=== PATIENT | male | born 1985 | race Caucasian/White ===

== ENCOUNTER 2019-05-31 19:41 | Emergency (ER) | payer OTHER, SELFPAY ==
--- NOTE | ~2019-05-31 | XR_ITS ---
EXAMINATION: XR ankle LT min 3V DATE: 05/31/2019 20:02 INDICATION: Left ankle pain and swelling TECHNIQUE: Anteroposterior, lateral, mortise, and additional oblique view of the ankle were obtained. COMPARISON: 12/27/2018 FINDINGS: There is no fracture, dislocation, or subluxation. The bones and joint spaces are normal. T here is mild lateral ankle soft tissue swelling. IMPRESSION: 1. Lateral ankle soft tissue swelling without acute osseous findings. Reviewed, dictated and finalized at location A. [employer]
[2019-05-31 19:47] VITALS: BP 134/87; PULSE 117; RESP 18; TEMP 36.3; O2SAT 100
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
[2019-05-31 21:53] VITALS: BP 120/80; PULSE 80; RESP 20; TEMP 36.7; O2SAT 99
== END 2019-05-31 21:54 | disposition home or self-care (01) ==
PROVIDERS: Emergency Provider General Practice; PCP Family Medicine
DX: S93.402A Sprain of unspecified ligament of left ankle, initial encounter (principal); J45.909 Unspecified asthma, uncomplicated; I10 Essential (primary) hypertension; F17.210 Nicotine dependence, cigarettes, uncomplicated; W00.1XXA Fall from stairs and steps due to ice and snow, initial encounter
CPT/HCPCS: 73610; 99283; A9270

== ENCOUNTER 2019-07-31 17:45 | Outpatient (CLI) | payer OTHER, SELFPAY ==
--- NOTE | ~2019-07-31 | XR_ITS ---
EXAMINATION: XR lumbar spine min 4V EXAM DATE: 07/31/2019 18:15 INDICATION: Acute onset mid and low back pain. TECHNIQUE: Lumber spine frontal, lateral, bilateral oblique projections. Coned down frontal and lat eral L5-S1 lumbar projections for interpretation. There is no prior study for comparison. FINDINGS: There is no spondylolysis. Sacrum, sacroiliac joints, sacral arcuate lines are intact. The vertebral bodies are aligned in the AP dimension. Vertebral body and disc heights are well-maintained . Paraspinal soft tissue is unremarkable. There are no bony erosions identified. No appreciable facet arthropathy. IMPRESSION: Unremarkable XR lumbar spine min 4V exam. Reviewed, dictated and finalized at location A.
--- NOTE | ~2019-07-31 | XR_ITS ---
EXAMINATION: XR thoracic spine 3V EXAM DATE: 07/31/2019 18:15 INDICATION: Acute onset mid and low back pain. Radiating. Worse on right side. TECHNIQUE: Frontal and lateral projections of the thoracic spine as well as lateral swimmers projecti on of the upper thoracic spine for interpretation. There is no prior study for comparison. FINDINGS: There are no bony erosions identified. The vertebral bodies are aligned in the AP dimension . Vertebral body and disc heights are well-maintained. Paraspinal soft tissue is unremarkable. IMPRESSION: Unremarkable XR thoracic spine 3V exam. Reviewed, dictated and finalized at location A.
== END 2019-07-31 17:46 | disposition home or self-care (01) ==
LOC: ANHIMG 17:50
PROVIDERS: PCP Family Medicine; Visit Provider Family Medicine
DX: M54.6 Pain in thoracic spine (principal)
CPT/HCPCS: 72072; 72110

== ENCOUNTER 2019-10-08 08:45 | Outpatient (CLI) | payer OTHER, SELFPAY ==
--- NOTE | ~2019-10-08 | MR_ITS ---
EXAMINATION: MR thoracic spine wo/w con DATE: 10/08/2019 10:54 INDICATION: Chronic back pain TECHNIQUE: Magnetic resonance imaging (MRI) of the thoracic spine was performed without intravenous c ontrast. Sagittal localizer T1-weighted FSE of the cervicothoracic spine was obtained. Thoracic spine sequences included sagittal T2-weighted FSE, sagittal T1-weighted SE, Sagittal T2-weighted FS FSE, a nd axial T2-weighted FSE. COMPARISON: Thoracic spine radiographs dated 07/31/2019 and MRI dated 12/23/2017 FINDINGS: Alignment is normal.Vertebral body heights are normal. Normal marrow signal. Mild disc heights and si gnal. Small right subarticular zone disc protrusion at T9-T10 which mildly narrows the central canal. The remaining discs do not extend beyond the endplate margins. Multilevel minimal to mild thoracic f acet osteoarthritis. There is normal spinal cord signal. The conus terminates at L1. IMPRESSION: 1. Small right-sided radicular zone disc protrusion resulting in mild central canal stenosis at T9-T1 0. Reviewed, dictated and finalized at location A. IMPRESSION: 1. Small right-sided radicular zone disc protrusion resulting in mild central c anal stenosis at T9-T10.
--- NOTE | ~2019-10-08 | MR_ITS ---
EXAMINATION: MR lumbar spine wo/w con EXAM DATE: 10/08/2019 10:54 INDICATION: Low back pain, mid back numbness. TECHNIQUE: Multi-sequential, multiplanar MR images of the lumbar spine were obtained without contrast . Sagittal T1, T2, T2 fat saturation images. Axial T2 weighted images. Axial T1 weighted sequence. Patient was then injected with 15 mL Multihance intravenous contrast and reimaged. Postcontrast axi al and sagittal T1-weighted fat saturation sequences were obtained.. Comparison is made to prior exam ination from 12/23/2017. FINDINGS: The vertebral bodies are aligned in the AP dimension. Vertebral body and disc heights are w ell-maintained. There are no suspicious marrow signal abnormalities. The conus medullaris terminates at the T12-L1 level and has normal signal intensity and morphology. Paraspinal soft tissue is unremar kable. There are no areas of abnormal enhancement on the post contrast images. Level by level evaluation: T12-L1: Disc does not extend beyond the endplate margin. Facet arthropathy: None. Neural foraminal stenosis: No stenosis. Central canal stenosis: No stenosis. L1-L2: Disc does not extend beyond the endplate margin. Facet arthropathy: None. Neural foraminal stenosis: No stenosis. Central canal stenosis: No stenosis. L2-L3: Disc does not extend beyond the endplate margin. Facet arthropathy: None. Neural foraminal stenosis: No stenosis. Central canal stenosis: No stenosis. L3-L4: Disc does not extend beyond the endplate margin. Facet arthropathy: None. Neural foraminal stenosis: No stenosis. Central canal stenosis: No stenosis. L4-L5: There is a minimal diffuse disc bulge. Facet arthropathy: Mild. Neural foraminal stenosis: Mild bilateral. Central canal stenosis: No stenosis. L5-S1: There is a mild diffuse disc bulge. Facet arthropathy: Mild. Neural foraminal stenosis: Mild to moderate bilateral. Central canal stenosis: No stenosis. IMPRESSION: 1. Mild lower lumbar spondylosis. 2. No acute findings. Reviewed, dictated and finalized at location B.
[2019-10-08 09:28] LABS: Estimated Glomerular Filt Rate > 60
== END 2019-10-08 08:46 | disposition home or self-care (01) ==
PROVIDERS: PCP Family Medicine; Visit Provider Family Medicine
DX: M51.24 Other intervertebral disc displacement, thoracic region (principal); M47.816 Spondylosis without myelopathy or radiculopathy, lumbar region
CPT/HCPCS: 36415; 72157; 72158; A9577

== ENCOUNTER 2019-10-16 09:28 | Outpatient (CLI) | payer OTHER, SELFPAY ==
--- NOTE | 2019-10-16 11:00 | NEURO_ITS ---
Patient Number: [id number] Impression: # Complains of pain in hands. # Subtle evolving bilateral Carpal Tunnel Syndrome with sensory component more than motor. # Normal needle/EMG exam. Nerve Conduction Studies Anti Sensory Summary Table Stim Site NR Peak (ms) P-T Amp (?V) Site1 Site2 Delta-P (ms) Dist (cm) Desmond (m/s) Left Median Anti Sensory (2-3nd Digit) Wrist 3.8 38.2 Wrist 2-3nd Digit 3.8 14.0 37 Wrist 3.8 34.8 Wrist 2-3nd Digit 3.8 14.0 37 Right Median Anti Sensory (2-3nd Digit) Wrist 3.7 27.6 Wrist 2-3nd Digit 3.7 14.0 38 Wrist 4.3 19.1 Wrist 2-3nd Digit 3.7 14.0 38 Left Radial Anti Sensory (Base 1st Digit) Wrist 2.1 17.8 Wrist Base 1st Digit 2.1 0.0 Right Radial Anti Sensory (Base 1st Digit) Wrist 2.0 22.7 Wrist Base 1st Digit 2.0 0.0 Left Ulnar Anti Sensory (5th Digit) Wrist 2.7 35.6 Wrist 5th Digit 2.7 14.0 52 Right Ulnar Anti Sensory (5th Digit) Wrist 2.4 42.4 Wrist 5th Digit 2.4 14.0 58 Motor Summary Table Stim Site NR Onset (ms) O-P Amp (mV) Site1 Site2 Delta-0 (ms) Dist (cm) Desmond (m/s) Left Median Motor (Abd Poll Brev) Wrist 3.6 2.7 Elbow Wrist 5.1 29.0 57 Elbow 8.7 3.1 Right Median Motor (Abd Poll Brev) Wrist 3.3 3.1 Elbow Wrist 5.2 28.0 54 Elbow 8.5 2.9 Left Ulnar Motor (Abd Dig Minimi) Wrist 2.5 6.5 A Elbow Wrist 4.5 28.0 62 A Elbow 7.0 5.8 Right Ulnar Motor (Abd Dig Minimi) Wrist 2.4 4.6 A Elbow Wrist 4.9 30.0 61 A Elbow 7.3 4.2 F Wave Studies NR F-Lat (ms) L-R F-Lat (ms) Left Median (Mrkrs) (Abd Poll Brev) 29.57 1.21 Right Median (Mrkrs) (Abd Poll Brev) 28.36 1.21 Left Ulnar (Mrkrs) (Abd Dig Min) 27.21 0.16 Right Ulnar (Mrkrs) (Abd Dig Min) 27.05 0.16 EMG Side Muscle Nerve Root Ins Act Fibs Amp Dur Recrt Comment Right 1stDorInt Ulnar C8-T1 Nml Nml Nml Nml Nml Right Ext Indicis Radial (Post Int) C7-8 Nml Nml Nml Nml Nml Right Ext Digitorum Radial (Post Int) C7-8 Nml Nml Nml Nml Nml Right BrachioRad Radial C5-6 Nml Nml Nml Nml Nml Right PronatorTeres Median C6-7 Nml Nml Nml Nml Nml Right Abd Poll Brev Median C8-T1 Nml Nml Nml Nml Nml Left 1stDorInt Ulnar C8-T1 Nml Nml Nml Nml Nml Left Ext Indicis Radial (Post Int) C7-8 Nml Nml Nml Nml Nml Left Ext Digitorum Radial (Post Int) C7-8 Nml Nml Nml Nml Nml Left BrachioRad Radial C5-6 Nml Nml Nml Nml Nml Left PronatorTeres Median C6-7 Nml Nml Nml Nml Nml Left Abd Poll Brev Median C8-T1 Nml Nml Nml Nml Nml Right ABD Dig Min Ulnar C8-T1 Nml Nml Nml Nml Nml MTDD
== END 2019-10-16 09:29 | disposition home or self-care (01) ==
LOC: ANHNEURO 09:30
PROVIDERS: PCP Family Medicine; Visit Provider Family Medicine
DX: G56.03 Carpal tunnel syndrome, bilateral upper limbs (principal)
CPT/HCPCS: 95886; 95911

== ENCOUNTER 2019-12-18 20:48 | Emergency (ER) | payer OTHER, SELFPAY ==
[2019-12-18 21:22] VITALS: BP 117/69; PULSE 71; RESP 17; TEMP 36.8; O2SAT 100
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
[2019-12-18] MEDS: SODIUM CHLORIDE 0.9% IV 2,000 ML 999 ML IV CONT (22:15)
[2019-12-18 22:16] LABS: Basophils Percent Auto 0.2 % (0.2-1.2); Hematocrit 36.2 % (42.0-52.0); Hemoglobin 12.3 g/dL (14.0-18.0); Immature Granulocyte Absolute 0.14 K/mm3 (0.00-0.031); Immature Granulocyte Percent A 0.8 % (0-0.5); Lymphocytes Absolute Auto 1.62 K/mm3 (0.9-3.2); Lymphocytes Percent Auto 9.8 % (18.3-44.2); Mean Corpuscular Hemoglobin 27.8 pg (26-34); Mean Corpuscular Volume 81.7 fl (80-100); Mean Platelet Volume 11.6 fl (7.4-10.4); Monocytes Percent Auto 5.9 % (2.6-8.5); Neutrophils Absolute Auto 13.7 K/mm3 (1.3-6.7); Neutrophils Percent Auto 83.3 % (45.5-73.1); Platelet Count Result 308 k/mm3 (150-375); Red Blood Count 4.43 M/mm3 (4.6-6.20); Red Cell Distribution Width 12.9 % (11.5-14.5); White Blood Count 16.5 K/mm3 (4.5-10.0)
[2019-12-18 22:23] LABS: Add Urine Microscopic? YES; Appearance Urine Cloudy (Clear); Bilirubin Urine Negative (Negative); Blood Urine Negative (Negative); Color Urine Amber (Yellow); Glucose Urine UA Negative (Negative); Ketones Urine Negative (Negative); Leukocyte Esterase Ur Negative LEU/UL (Negative); Mucus Urine Rare /lpf; Nitrate Urine Negative (Negative); Protein Urine Negative (Negative); RBC Urine 0-2 /hpf (0-2); Squamous Epithelial Cell Urine Rare /hpf (Few); Urobilinogen Urine Negative mg/dL (<2.0); WBC Urine 0-3 /hpf
[2019-12-18 22:26] LABS: Specific Grav Ur 1.034 (1.001-1.035)
[2019-12-18 22:27] LABS: Anion Gap 10 mmol/L (8-16); Blood Urea Nitrogen 32 mg/dL (9-20); Calcium 9.3 mg/dL (8.4-10.2); Carbon Dioxide 28 mmol/L (22-30); Chloride 102 mmol/L (98-107); Estimated CRCL calculation 85 ml/min; Estimated Glomerular Filt Rate > 60; Glucose 149 mg/dL (75-110); Potassium 3.8 mmol/L (3.4-5.0); Sodium 140 mmol/L (137-145)
[2019-12-18 22:42] VITALS: BP 116/73; PULSE 63; RESP 19; O2SAT 98
[2019-12-18 23:20] VITALS: BP 127/66; PULSE 71; RESP 19; TEMP 36.3; O2SAT 98
[2019-12-19 18:55] LABS: Glucose Point of Care 187 (65-105)
== END 2019-12-18 23:22 | disposition home or self-care (01) ==
PROVIDERS: Emergency Provider Emergency Medicine; PCP Family Medicine
DX: E11.65 Type 2 diabetes mellitus with hyperglycemia (principal); J45.909 Unspecified asthma, uncomplicated; I10 Essential (primary) hypertension; F17.210 Nicotine dependence, cigarettes, uncomplicated
CPT/HCPCS: 36415; 80048; 81001; 82948; 85025; 96360; 99283; J7030

== ENCOUNTER 2019-12-31 12:44 | Emergency (ER) | payer OTHER, SELFPAY ==
[2019-12-31 12:49] VITALS: BP 113/67; PULSE 111; RESP 18; TEMP 36.2; O2SAT 99
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
[2019-12-31] MEDS: diazePAM 5 MG TABLET PO (14:15)
[2019-12-31] MEDS: KETOROLAC (*BKC) 60 MG/2 ML VIAL IM (14:16)
[2019-12-31 14:21] VITALS: BP 129/89; PULSE 92; RESP 20; TEMP 36.8; O2SAT 100
== END 2019-12-31 14:21 | disposition home or self-care (01) ==
PROVIDERS: Emergency Provider Emergency Medicine; PCP Family Medicine
DX: S39.012A Strain of muscle, fascia and tendon of lower back, initial encounter (principal); X50.0XXA Overexertion from strenuous movement or load, initial encounter; J45.909 Unspecified asthma, uncomplicated; I10 Essential (primary) hypertension
CPT/HCPCS: 96372; 99283; A9270; J1885

== ENCOUNTER 2022-09-13 17:03 | Emergency (ER) | payer OTHER, SELFPAY ==
[2022-09-13 17:07] VITALS: BP 140/95; PULSE 110; RESP 16; TEMP 36.4; O2SAT 100
[2022-09-13 18:41] LABS: Basophils Absolute Auto 0.1 K/mm3 (0.0-0.1); Basophils Percent Auto 0.5 % (0.2-1.2); Eosinophils Absolute Auto 0.1 K/mm3 (0-0.3); Eosinophils Percent Auto 0.7 % (0-4.4); Hematocrit 40.4 % (42.0-52.0); Hemoglobin 13.9 g/dL (14.0-18.0); Immature Granulocyte Absolute 0.02 K/mm3 (0.00-0.031); Immature Granulocyte Percent A 0.2 % (0-0.5); Mean Corpuscular HGB Conc 34.4 g/dl (32-36); Mean Corpuscular Hemoglobin 27.5 pg (26-34); Mean Platelet Volume 11.5 fl (7.4-10.4); Monocytes Absolute Auto 0.5 K/mm3 (0.1-0.6); Monocytes Percent Auto 5.5 % (2.6-8.5); Neutrophils Absolute Auto 6.4 K/mm3 (1.3-6.7); Neutrophils Percent Auto 67.1 % (45.5-73.1); Platelet Count Result 301 k/mm3 (150-375); Red Blood Count 5.05 M/mm3 (4.6-6.20); Red Cell Distribution Width 13.5 % (11.5-14.5); White Blood Count 9.6 K/mm3 (4.5-10.0)
[2022-09-13 18:47] LABS: Alanine Aminotransferase 38 U/L (6-50); Albumin Level 4.5 g/dL (3.5-5.1); Alkaline Phosphatase 44 U/L (38-126); Anion Gap 8 mmol/L (8-16); Aspartate Amino Transferase 33 U/L (17-59); Bilirubin,Total 1.2 mg/dL (0.2-1.3); Blood Urea Nitrogen 21 mg/dL (9-20); Calcium 9.3 mg/dL (8.4-10.2); Carbon Dioxide 28 mmol/L (22-30); Chloride 103 mmol/L (98-107); Estimated CRCL calculation 102 ml/min; Estimated Glomerular Filt Rate > 60; Glucose 110 mg/dL (65-110); Lipase 87 U/L (23-300); Potassium 3.2 mmol/L (3.4-5.0); Sodium 139 mmol/L (137-145)
[2022-09-13 18:48] LABS: Ethanol < 10 mg/dL (<10)
[2022-09-13 20:55] VITALS: BP 140/95; BP 146/101; BP 149/99; PULSE 118; PULSE 120; PULSE 122
[2022-09-13] MEDS: SODIUM CHLORIDE 0.9% IV 1,000 ML 999 ML IV CONT ×2 (21:02→22:09)
[2022-09-13] MEDS: ONDANSETRON INJ 4 MG/2 ML VIAL IV PUSH (21:02)
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
--- NOTE | 2022-09-13 22:12 | PC.NURSE ---
stood patient by the bed to help with urination. patient states he is unable to void. provider aware. new orders received
--- NOTE | 2022-09-13 23:07 | PC.NURSE ---
patient unable to urinate. ok per provider. PO challenge at this time
[2022-09-14 00:24] VITALS: BP 136/100; PULSE 95; RESP 18; O2SAT 99
[2022-09-14 00:31] VITALS: BP 147/98
== END 2022-09-14 01:47 | disposition home or self-care (01) ==
PROVIDERS: Emergency Medicine; Emergency Provider Emergency Medicine; PCP Family Medicine
DX: F11.23 Opioid dependence with withdrawal (principal); J45.909 Unspecified asthma, uncomplicated; I10 Essential (primary) hypertension; F17.210 Nicotine dependence, cigarettes, uncomplicated
CPT/HCPCS: 36415; 80053; 80307; 83690; 85025; 96361; 96374; 99284; J2405; J7030

== ENCOUNTER 2023-11-21 00:38 | Emergency (ER) | payer BC, SELFPAY ==
[2023-11-21 00:39] VITALS: BP 142/89; PULSE 100; RESP 18; TEMP 36.8; O2SAT 100
[2023-11-21] MEDS: GLUCAGON FOR INJ 1 MG VIAL IV PUSH (02:40)
[2023-11-21] MEDS: NITROGLYCERIN SL 0.4 MG TABLET SUBLINGUAL (02:41)
[2023-11-21 02:51] LABS: Basophils Percent Auto 0.4 % (0.2-1.2); Eosinophils Percent Auto 0.2 % (0-4.4); Hematocrit 34.9 % (42.0-52.0); Hemoglobin 12.3 g/dL (14.0-18.0); Immature Granulocyte Absolute 0.03 K/mm3 (0.00-0.031); Immature Granulocyte Percent A 0.3 % (0-0.5); Lymphocytes Absolute Auto 1.34 K/mm3 (0.9-3.2); Lymphocytes Percent Auto 13.8 % (18.3-44.2); Mean Corpuscular HGB Conc 35.2 g/dl (32-36); Mean Corpuscular Volume 79.3 fl (80-100); Mean Platelet Volume 11.3 fl (7.4-10.4); Monocytes Absolute Auto 0.4 K/mm3 (0.1-0.6); Monocytes Percent Auto 3.6 % (2.6-8.5); Neutrophils Absolute Auto 7.9 K/mm3 (1.3-6.7); Neutrophils Percent Auto 81.7 % (45.5-73.1); Platelet Count Result 240 k/mm3 (150-375); Red Cell Distribution Width 12.2 % (11.5-14.5); White Blood Count 9.7 K/mm3 (4.5-10.0)
[2023-11-21 03:02] LABS: Alanine Aminotransferase 24 U/L (6-50); Albumin Level 4.9 g/dL (3.5-5.1); Alkaline Phosphatase 41 U/L (38-126); Anion Gap 13 mmol/L (4-12); Aspartate Amino Transferase 36 U/L (17-59); Bilirubin,Total 2.1 mg/dL (0.2-1.3); Blood Urea Nitrogen 7 mg/dL (9-20); Calcium 9.4 mg/dL (8.4-10.2); Carbon Dioxide 29 mmol/L (22-30); Chloride 97 mmol/L (98-107); Estimated CRCL calculation 90 ml/min; Estimated Glomerular Filt Rate > 60; Glucose 139 mg/dL (65-110); Potassium 3.1 mmol/L (3.4-5.0); Sodium 139 mmol/L (137-145)
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
[2023-11-21 03:42] VITALS: BP 112/85; PULSE 90; RESP 12; O2SAT 100
== END 2023-11-21 03:46 | disposition home or self-care (01) ==
PROVIDERS: Emergency Provider Emergency Medicine; PCP Family Medicine
DX: T18.128A Food in esophagus causing other injury, initial encounter (principal); I10 Essential (primary) hypertension; F17.210 Nicotine dependence, cigarettes, uncomplicated; W44.F3XA Food entering into or through a natural orifice, initial encounter
CPT/HCPCS: 36415; 80053; 85025; 96374; 99284; A9270; J1610